=== PATIENT | male | born 1990 ===

== ENCOUNTER 2017-12-21 02:58 | Emergency (ER) | payer MEDICAID ==
[2017-12-21 03:11] VITALS: PULSE 89; O2SAT 99
--- NOTE | 2017-12-21 03:25 | C.PDOC ---
History Of Present Illness 27 years old male presents to ED with complaints feeling his heart racing and being unable to sleep. Patient states he took a test earlier today and is unsure of the results and worried about it. Denies any other physical complaints. Time Seen by Provider: 12/21/17 03:16 Chief Complaint (Nursing): Palpitations History Per: Patient History/Exam Limitations: no limitations Onset/Duration Of Symptoms: Hrs Current Symptoms Are (Timing): Still Present Recent travel outside of the [place]: No Past Medical History Reviewed: Historical Data, Nursing Documentation, Vital Signs Vital Signs: Last Vital Signs Temp 97.9 F 12/21/17 03:31 Pulse 89 12/21/17 03:31 Resp 18 12/21/17 03:31 BP 125/71 12/21/17 03:31 Pulse Ox 99 12/21/17 04:34 - Medical History PMH: No Chronic Diseases Surgical History: No Surg Hx Family History: States: No Known Family Hx - Social History Hx Alcohol Use: No Hx Substance Use: No - Immunization History Hx Tetanus Toxoid Vaccination: No Hx Influenza Vaccination: No Hx Pneumococcal Vaccination: No Review Of Systems Constitutional: Negative for: Fever, Chills Cardiovascular: Positive for: Palpitations. Negative for: Chest Pain Respiratory: Negative for: Shortness of Breath Gastrointestinal: Negative for: Nausea, Vomiting, Abdominal Pain, Diarrhea Neurological: Negative for: Weakness, Numbness Physical Exam - Physical Exam Appears: Well, Non-toxic, No Acute Distress Skin: Normal Color, Warm, Dry Head: Atraumatic, Normacephalic Eye(s): bilateral: Normal Inspection Oral Mucosa: Moist Neck: Supple Chest: Symmetrical, No Tenderness Cardiovascular: Rhythm Regular Respiratory: Normal Breath Sounds, No Decreased Breath Sounds, No Rales, No Rhonchi, No Wheezing Gastrointestinal/Abdominal: Soft, No Tenderness, No Distention, No Guarding, No Rebound Extremity: Normal ROM, No Tenderness, No Pedal Edema, No Deformity Neurological/Psych: Oriented x3, Normal Speech, Normal Cognition, Other (no focal deficits ) ED Course And Treatment O2 Sat by Pulse Oximetry: 99 (RA) Pulse Ox Interpretation: Normal Medical Decision Making Medical Decision Making: Administered Benadryl. Patient already asking for discharge shortly after medication. He has stable vital sings and in no distress. Recommend rest and to follow up with PCP or clinic. Disposition Counseled Patient/Family Regarding: Diagnosis, Need For Followup - Disposition Disposition: HOME/ ROUTINE Disposition Time: 03:50 Condition: STABLE Additional Instructions: Follow up with the clinic in 2-5 days for further evaluation. Instructions: Anxiety, Adult (DC) Forms: [facility] (Telugu) - POA Present On Arrival: None - Clinical Impression Clinical Impression: Test anxiety, Palpitations - PA / FLIGHT INFORMATION EXPEDITER / Resident Statement MD/DO has reviewed & agrees with the documentation as recorded. - Scribe Statement The provider has reviewed the documentation as recorded by the Scribcalin Rod All medical record entries made by the Anthony were at my direction and personally dictated by me. I have reviewed the chart and agree that the record accurately reflects my personal performance of the history, physical exam, medical decision making, and the department course for this patient. I have also personally directed, reviewed, and agree with the discharge instructions and disposition.
[2017-12-21 03:38] VITALS: BP 125/71; RESP 18; TEMP 97.9
== END 2017-12-21 03:50 | disposition home or self-care (01) ==
LOC: C.ER 02:58
DX: F41.9 Anxiety disorder, unspecified (principal); R00.2 Palpitations